=== PATIENT | male | born 1965 | race Caucasian/White ===

== ENCOUNTER 2024-07-13 10:55 | Emergency (ER) | payer OTHER, SELFPAY ==
[2024-07-13] VITALS (12 sets, daily range): BP systolic 162; BP diastolic 90; PULSE 53–70; TEMP 36.7; O2SAT 93–98; BMI 37.7
--- NOTE | 2024-07-13 11:27 | ED.GENADUL1 ---
HPI HPI - General Adult General Chief complaint: Chest Pain Stated complaint: CHEST PAIN Time Seen by Provider: 07/13/24 10:56 Source: patient Mode of arrival: walk-in Limitations: no limitations History of Present Illness HPI narrative: This 58-year-old male presents with a chief complaint of fleeting chest discomfort lasting a few seconds at a time with a flushed feeling going down his arms and legs. This has been going on off and on for last 2 or 3 days. At the time of my examination he was symptom-free. He has a history of paroxysmal atrial fibrillation in the past. Patient is on hydroxyzine 50 mg for anxiety. He says he takes it 3 or 4 times a week. He takes carvedilol 25 mg twice a day. When he had his paroxysmal atrial fibrillation a year ago he was started on carvedilol 12.5 mg twice a day which was then gradually increased to this current dose. He had been on losartan 100 mg daily and around the end of May she was switched from losartan to valsartan 160 mg a day which she feels is controlling his blood pressure better. He also takes aspirin daily. He is on fluvoxamine 25 mg at night started 3 weeks ago. He states he does not like the way it makes him feel. Related Data Allergies Allergy/AdvReac Type Severity Reaction Status Date / Time No Known Drug Allergies Allergy Verified 07/13/24 11:04 Opioid HPI Opioid Management Most Recent Opioid Data: No Data to Display Review of Systems ROS Status of ROS 10 or more systems reviewed and unremarkable except as noted in history and below PFSH PFS Social History Little interest or pleasure in doing things: not at all Feeling down, depressed, or hopeless: not at all Exam Narrative Exam Narrative: Patient does not appear acutely distressed or ill-appearing. HEENT exam is normal to inspection. Vital signs are fairly stable and are as documented. Neck is supple. Lung sounds are clear to auscultation bilaterally with good air entry. Heart has regular rate and rhythm. S1 and S2 are normal. Abdomen is protuberant, soft and nontender. Lower extremities warm and dry he does not have unilateral leg swelling or calf tenderness. Speech and mentation are clear and intact. There is no facial asymmetry. He moves all extremities actively. Constitutional Vital Signs, click to edit/add: Last Vital Signs Temp 98.1 F 07/13/24 11:04 Pulse 53 L 07/13/24 13:00 Resp 13 07/13/24 13:00 BP 162/90 H 07/13/24 11:04 Pulse Ox 95 07/13/24 13:00 O2 Del Method Room Air 07/13/24 11:04 Course Vital Signs Vital signs: Vital Signs Temperature 98.1 F 07/13/24 11:04 Pulse Rate 70 07/13/24 11:04 Respiratory Rate 18 07/13/24 11:04 Blood Pressure 162/90 H 07/13/24 11:04 Pulse Oximetry 98 07/13/24 11:04 Oxygen Delivery Method Room Air 07/13/24 11:04 Temperature 98.1 F 07/13/24 11:04 Pulse Rate 53 L 07/13/24 13:00 Respiratory Rate 13 07/13/24 13:00 Blood Pressure 162/90 H 07/13/24 11:04 Pulse Oximetry 95 07/13/24 13:00 Oxygen Delivery Method Room Air 07/13/24 11:04 Medical Decision Making MDM Narrative Medical decision making narrative: Twelve-lead EKG is interpreted by me and shows sinus rhythm with a rate of 64 bpm. Voltages are somewhat low. The axis is normal. VA interval, QRS complex and QTc intervals are all normal. There is no acute ST elevation. Patient states she was recently switched from losartan to valsartan which has helped bring his blood pressure down. Patient's heart rate has for the most part been slow in the low to mid 50s in the ED. His cardiac workup is completely unremarkable. Chest x-ray is nondiagnostic. His chest pain is very atypical lasting only seconds at a time. I am advising him to drop his carvedilol dose to 12.5 mg twice a day to see if this helps resolve his symptoms and to follow-up with his PCP and construction site manager within a week. He is to return anytime for worsening symptoms. He has remained in sinus rhythm on the monitor during his ED stay. Lab Data Labs: Lab Results 07/13/24 Range/Units 11:15 WBC 5.4 (4.0-11.0) 10^3/uL RBC 4.64 L (4.70-6.10) 10^6/uL Hgb 14.5 (14.0-18.0) g/dL Hct 42.7 (42.0-54.0) % MCV 92.0 (80.0-94.0) fL MCH 31.3 (25.9-34.0) pg MCHC 34.0 (29.9-35.2) g/dL RDW 13.2 (11.0-15.0) % Plt Count 363 (150-450) 10^3/uL MPV 8.9 L (9.5-13.5) fL Neut % (Auto) 58.5 (43.0-75.0) % Lymph % (Auto) 28.1 (20.5-60.0) % [place] % (Auto) 10.3 (1.7-12.0) % Eos % (Auto) 2.2 (0.9-7.0) % Baso % (Auto) 0.7 (0.2-2.0) % Neut # (Auto) 3.2 (1.4-6.5) 10^3/uL Lymph # (Auto) 1.5 (1.2-3.8) 10^3/uL [place] # (Auto) 0.6 (0.3-0.8) 10^3/uL Eos # (Auto) 0.1 (0.0-0.7) 10^3/uL Baso # (Auto) 0.0 (0.0-0.1) 10^3/uL Abs Immat Gran (auto) 0.01 (0.00-0.03) 10^3/uL Imm/Tot Granulo (auto) 0.2 (0.0-0.5) % D-Dimer <0.19 (<=0.59) mg/L FEU Sodium 140 (136-145) mmol/L Potassium 4.4 (3.5-5.1) mmol/L Chloride 105 (98-107) mmol/L Carbon Dioxide 27.4 (21.0-32.0) mmol/L Anion Gap 12.0 BUN 10.0 (7.0-18.0) mg/dL Creatinine 1.06 (0.70-1.30) mg/dL Est GFR ( Amer) >60 (>=60 mL/min/1.73m^2) Est GFR (Non-Af Amer) >60 (>=60 mL/min/1.73m^2) BUN/Creatinine Ratio 9.4 Glucose 116 H (74-106) mg/dL Calcium 8.8 (8.5-10.1) mg/dL Total Bilirubin 0.5 (0.2-1.0) mg/dL AST 19 (15-37) U/L ALT 34 (16-63) U/L Alkaline Phosphatase 67 (46-116) U/L Troponin I High Sens 6.2 (4.0-76.1) pg/mL Total Protein 7.4 (6.4-8.2) g/dL Albumin 3.9 (3.4-5.0) g/dL Globulin 3.5 g/dL Albumin/Globulin Ratio 1.1 Discharge Plan Discharge Chief Complaint: Chest Pain Clinical Impression: Atypical chest pain Patient Disposition: Home, Self-Care Time of Disposition Decision: 13:37 Condition: Good Mode of Transportation: Private Vehicle Print Language: [place] Instructions: Noncardiac Chest Pain (ED) Additional Instructions: Reduce carvedilol dose to 12.5 mg twice a day. Follow-up with PCP and construction site manager within a week. Return for worsening symptoms. Referrals: Sunshine Rose PA [Primary Care Provider] - 1 week
[2024-07-13 11:39] LABS: Basophils Percent Auto 0.7 % (0.2-2.0); Eosinophils Absolute Auto 0.1 10^3/uL (0.0-0.7); Eosinophils Percent Auto 2.2 % (0.9-7.0); Hematocrit 42.7 % (42.0-54.0); Hemoglobin 14.5 g/dL (14.0-18.0); Immature Granulocytes Abs Auto 0.01 10^3/uL (0.00-0.03); Immature Granulocytes Pct Auto 0.2 % (0.0-0.5); Lymphocytes Absolute Auto 1.5 10^3/uL (1.2-3.8); Lymphocytes Percent Auto 28.1 % (20.5-60.0); Mean Corpuscular Hemoglobin 31.3 pg (25.9-34.0); Mean Platelet Volume 8.9 fL (9.5-13.5); Monocytes Absolute Auto 0.6 10^3/uL (0.3-0.8); Monocytes Percent Auto 10.3 % (1.7-12.0); Neutrophils Absolute Auto 3.2 10^3/uL (1.4-6.5); Neutrophils Percent Auto 58.5 % (43.0-75.0); Platelet Count 363 10^3/uL (150-450); Red Blood Count 4.64 10^6/uL (4.70-6.10); Red Cell Distribution Width 13.2 % (11.0-15.0); White Blood Count 5.4 10^3/uL (4.0-11.0)
[2024-07-13 11:54] LABS: D Dimer <0.19 mg/L FEU (<=0.59)
[2024-07-13 11:56] LABS: Alanine Aminotransferase 34 U/L (16-63); Albumin Globulin Ratio 1.1; Albumin Level 3.9 g/dL (3.4-5.0); Alkaline Phosphatase 67 U/L (46-116); Aspartate Amino Transferase 19 U/L (15-37); BUN Creatinine Ratio 9.4; Bilirubin Total 0.5 mg/dL (0.2-1.0); Calcium 8.8 mg/dL (8.5-10.1); Carbon Dioxide 27.4 mmol/L (21.0-32.0); Chloride 105 mmol/L (98-107); Estimated GFR (African America >60 (>=60 mL/min/1.73m^2); Estimated GFR (Non-African Ame >60 (>=60 mL/min/1.73m^2); Globulin 3.5 g/dL; Glucose 116 mg/dL (74-106); Potassium 4.4 mmol/L (3.5-5.1); Sodium 140 mmol/L (136-145); Total Protein 7.4 g/dL (6.4-8.2)
[2024-07-13 11:58] LABS: Troponin I High Sensitivity 6.2 pg/mL (4.0-76.1)
--- NOTE | 2024-07-13 14:43 | ECG_ITS ---
[facility] Test Date: 2024-07-13 Pat Name: MANJULA DUNLAP Department: Room: - Gender: Male Registered Medical Transcriptionist: : [id number] Requested By: [id number] Order Number: [id number] Reading MD: FRANCIS FLYNN M.D. Measurements Intervals [place] Rate: 64 P: 25 CT: 134 QRS: 11 QRSD: 90 T: 28 QT: 400 QTc: 409 Interpretive Statements 1100 Sinus rhythm 8102 Low QRS voltage in chest leads Abnormal ECG Compared to ECG 10/30/2016 16:43:24 Low QRS voltage now present Electronically Signed On 07-13-2024 20:26:57 EDT by FRANCIS FLYNN M.D.
== END 2024-07-13 13:52 | disposition home or self-care (01) ==
PROVIDERS: Emergency Provider Emergency Medicine; PCP Physician Assistant
DX: R07.89 Other chest pain (principal); I48.0 Paroxysmal atrial fibrillation; F41.9 Anxiety disorder, unspecified; Z79.899 Other long term (current) drug therapy; Z79.82 Long term (current) use of aspirin
CPT/HCPCS: 36415; 71046; 80053; 84484; 85025; 85378; 93005; 99284